=== PATIENT | male | born 1940 | race Hispanic/Latino ===

== ENCOUNTER 2018-08-03 15:15 | Emergency (ER) | payer MEDICARE ==
[2018-08-03] MEDS ORDERED: LIDOCAINE HCL 1% 20 ML VIAL ONE (15:24)
[2018-08-03] MEDS ORDERED: TETANUS/DIPHTHERIA TOXOID [ADULT] 0.5 ML VIAL IM ONE (15:25)
== END 2018-08-03 17:44 | disposition home or self-care (01) ==
LOC: EDH 15:15
DX: S61.213A Laceration without foreign body of left middle finger without damage to nail, initial encounter (principal); I10 Essential (primary) hypertension; E78.00 Pure hypercholesterolemia, unspecified; I25.10 Atherosclerotic heart disease of native coronary artery without angina pectoris; Z98.890 Other specified postprocedural states; W26.0XXA Contact with knife, initial encounter; Y93.89 Activity, other specified; Y92.098 Other place in other non-institutional residence as the place of occurrence of the external cause; Y99.8 Other external cause status
CPT/HCPCS: 12042; 73140; 90471; 90714

== ENCOUNTER 2020-04-05 06:16 | Emergency (ER) | payer MEDICARE ==
[~2020-04-05 06:16] MED LIST: AMLO-257 PO; ASPI-556 PO; IBUP-2070 PO; LOSA1TAB42 PO; OSEL75 PO; SIMV-43 PO
[2020-04-05] MEDS ORDERED: OXYMETAZOLINE HCL SPRAY 15 ML BOTTLE ONE (08:25)
== END 2020-04-05 10:19 | disposition home or self-care (01) ==
LOC: EDH 06:16
DX: R04.0 Epistaxis (principal); I25.10 Atherosclerotic heart disease of native coronary artery without angina pectoris; E78.00 Pure hypercholesterolemia, unspecified; I10 Essential (primary) hypertension; Z90.49 Acquired absence of other specified parts of digestive tract; Z98.890 Other specified postprocedural states; Z87.891 Personal history of nicotine dependence

== ENCOUNTER → 2020-12-13 | Outpatient (CLI) | payer MEDICARE ==
[~2020-12-13] VITALS: Ht 180.3 cm; Wt 98.4 kg
[~2020-12-13] MED LIST changes: +REGADENOSON 0.4 MG/5 ML PF SYG IVP SCH
== END | disposition home or self-care (01) ==
LOC: SHCH 08:55
PROVIDERS: ATTEND Internal Medicine Cardiovascular Disease
DX: I20.0 Unstable angina (principal)
CPT/HCPCS: 78452; 93017; 96374; A9500 ×2; J2785

== ENCOUNTER 2021-01-01 18:36 | Observation (INO) | payer MEDICARE ==
[~2021-01-01] VITALS: Ht 180.3 cm; Wt 93.7 kg
[~2021-01-01 18:36] MED LIST changes: +AMIODARONE 150MG VIAL IV ONE; +CACL 1GM SYG IVP ONE; +EPINEPHRINE 1MG SYG 10ML IVP ONE; +LIDOCAINE PF 100MG/5ML (2%) SYRINGE 5ML IVP ONE; -REGADENOSON 0.4 MG/5 ML PF SYG IVP SCH; +SODIUM BICARB 8.4% 50ML SYRINGE IVP ONE
[2021-01-01 19:32] LABS: CREATININE 1.2 mg/dL (0.5-1.5); POTASSIUM 4.1 mmol/L (3.5-5.1)
[2021-01-01 19:33] LABS: INR 1.05 (0.85-1.15); PROTHROMBIN TIME 11.4 SEC (9.6-11.6)
[2021-01-01 19:35] LABS: PARTIAL THROMBOPLASTIN TIME 24.2 SEC (26.3-35.5)
[2021-01-01 19:37] LABS: ALBUMIN 3.7 g/dL (3.5-5.0); BILIRUBIN,TOTAL 0.4 mg/dL (0.2-1.0); TOTAL PROTEIN, SERUM 7.3 g/dL (6.0-8.3)
[2021-01-01 19:50] LABS: BASOPHILS % (AUTO) 0.8 % (0.0-5.0); EOSINOPHILS % (AUTO) 2.2 % (0.0-8.0); LYMPHOCYTES % (AUTO) 19.9 % (21.0-51.0); MEAN CORPUSCULAR HEMOGLOBIN 17.4 pg (27.0-33.0); MEAN CORPUSCULAR VOLUME 64.5 fL (79-99); MONOCYTES % (AUTO) 10.1 % (3.0-13.0); NEUTROPHILS % (AUTO) 66.8 % (40.0-77.0); NUCLEATED RED BLOOD CELLS 0.8 % (0.0-0.19); PLATELET COUNT (AUTO) 390 K/uL (130-400); RED BLOOD CELL COUNT(AUTO) 2.93 MIL/uL (4.50-6.20); RED CELL DISTRIBUTION WIDTH 19.3 % (11.0-15.5)
[2021-01-01 20:06] LABS: HEMATOCRIT 18.9 % (42-54)
[2021-01-01] MEDS: PANTOPRAZOLE 40 MG/VIAL IVP SCH (21:45)
[2021-01-02] MEDS ORDERED: PANTOPRAZOLE 40 MG/VIAL ONE (02:01)
[2021-01-02 02:15] VITALS: BP 155/77
[2021-01-02] MEDS ORDERED: RANO500T6 PO (03:19)
[2021-01-02] MEDS ORDERED: ISOS60TA77 PO (03:19)
[2021-01-02] MEDS ORDERED: DUTA0.5C37 PO (03:19)
[2021-01-02] MEDS ORDERED: SACU1TAB7 PO (03:19)
[2021-01-02] MEDS ORDERED: ATOR10TA69 PO (03:19)
[2021-01-02] MEDS ORDERED: VITA1CAP85 PO (03:45)
[2021-01-02 04:07] VITALS: BP 158/56
[2021-01-02 06:04] LABS: CREATINE KINASE, TOTAL 81 U/L (21-232); MYOGLOBIN 86 ng/mL (10-92); TROPONIN I < 0.04 ng/mL (0.00-0.06)
[2021-01-02 07:30] VITALS: BP 145/76
[2021-01-02 08:38] LABS: HEMATOCRIT 26.7 % (42-54); MEAN CORPUSCULAR HEMOGLOBIN 20.4 pg (27.0-33.0); MEAN CORPUSCULAR HGB CONC 29.6 g/dL (32.0-36.0); MEAN CORPUSCULAR VOLUME 68.8 fL (79-99); NUCLEATED RED BLOOD CELLS 0.4 % (0.0-0.19); RED BLOOD CELL COUNT(AUTO) 3.88 MIL/uL (4.50-6.20); RED CELL DISTRIBUTION WIDTH 24.4 % (11.0-15.5); WHITE BLOOD COUNT (AUTO) 4.7 K/uL (4.8-10.8)
[2021-01-02] MEDS: PANTOPRAZOLE 40 MG/VIAL IVP SCH ×2 (09:45→20:48)
[2021-01-02 11:00] VITALS: BP 141/73
[2021-01-02 15:57] VITALS: BP 136/71
[2021-01-02] MEDS ORDERED: PEG 3350/NA SULF,BICARB,CL/KCL 4000 ML SOLN PO SCH (17:00)
[2021-01-02 20:00] VITALS: BP 133/77
[2021-01-03] VITALS: BP 114/51
[2021-01-03] MEDS ORDERED: NITROGLYCERIN 0.4 MG SL TAB SL ONE (00:01)
[2021-01-03] MEDS ORDERED: ONDANSETRON 4MG INJ ONE (00:12)
[2021-01-03] MEDS ORDERED: NITROGLYCERIN 0.4 MG SL TAB SL PRN (00:15)
[2021-01-03] MEDS ORDERED: ONDANSETRON 4MG INJ IVP PRN (00:30)
[2021-01-03] MEDS ORDERED: EPINEPHRINE PF 1MG AMP ONE ×2 (02:46→02:57)
[2021-01-03 03:01] LABS: BASOPHILS % (AUTO) 0.6 % (0.0-5.0); EOSINOPHILS % (AUTO) 0.2 % (0.0-8.0); HEMATOCRIT 23.6 % (42-54); MEAN CORPUSCULAR HEMOGLOBIN 20.3 pg (27.0-33.0); MEAN CORPUSCULAR HGB CONC 28.4 g/dL (32.0-36.0); MEAN CORPUSCULAR VOLUME 71.5 fL (79-99); NUCLEATED RED BLOOD CELLS 0.6 % (0.0-0.19); PLATELET COUNT (AUTO) 249 K/uL (130-400)
[2021-01-03 03:14] LABS: CREATININE 1.3 mg/dL (0.5-1.5); POTASSIUM 4.7 mmol/L (3.5-5.1)
[2021-01-03 03:15] LABS: ALBUMIN 3.2 g/dL (3.5-5.0); BILIRUBIN,TOTAL 1.1 mg/dL (0.2-1.0); MAGNESIUM 1.8 mg/dL (1.80-2.40); THYROID STIMULATING HORMONE 5.17 uIU/mL (0.36-3.74); TOTAL PROTEIN, SERUM 6.2 g/dL (6.0-8.3); TROPONIN I 0.15 ng/mL (0.00-0.06)
[2021-01-03] MEDS ORDERED: LOSARTAN 50 MG TABLET PO SCH (09:00)
[2021-01-03] MEDS ORDERED: AMLODIPINE 5 MG TAB PO SCH (09:00)
== END 2021-01-03 02:57 | disposition expired ==
LOC: EDH 18:36 → EDHIP 21:30 → 3CH 01-02 01:56
PROVIDERS: ADMIT Internal Medicine; ATTEND Internal Medicine
DX: D62 Acute posthemorrhagic anemia (principal); Z20.822 Contact with and (suspected) exposure to COVID-19; K92.2 Gastrointestinal hemorrhage, unspecified; I10 Essential (primary) hypertension; I25.110 Atherosclerotic heart disease of native coronary artery with unstable angina pectoris; E78.5 Hyperlipidemia, unspecified; N40.0 Benign prostatic hyperplasia without lower urinary tract symptoms; E78.00 Pure hypercholesterolemia, unspecified; C61 Malignant neoplasm of prostate; Z92.3 Personal history of irradiation; Z90.49 Acquired absence of other specified parts of digestive tract; Z95.5 Presence of coronary angioplasty implant and graft; Z79.82 Long term (current) use of aspirin; Z79.899 Other long term (current) drug therapy
CPT/HCPCS: 31500; 36415 ×3; 36430 ×2; 80053 ×2; 82140; 82270; 82550 ×2; 82948; 83605 ×2; 83735; 83874 ×2; 84443; 84484 ×3; 85025 ×2; 85027; 85610; 85730; 86850; 86900; 86901; 86923; 87426; 87637; 92950; 93005 ×2; 96374; 96375; 96376; 99284; C9113 ×3; G0378 ×27; J0171 ×3; J0282; J2001; J2405; J3490 ×2; P9016 ×2; U0003